=== PATIENT | female | born 2000 | race Hispanic/Latino ===

== ENCOUNTER 2021-07-09 06:03 | Day surgery (SDC) | payer OTHER ==
[2021-07-09] MEDS ORDERED: LACTATED RINGERS 1,000 ML ONE ×2 (07:02→09:02)
[2021-07-09 07:13] LABS: INR 0.98 (0.87-1.13); Partial Thromboplastin Time 30.2 Sec. (24.2-36.6)
--- NOTE | 2021-07-09 07:22 | Anesthesia Consultation ---
Anesthesia Consult and Med Hx Date of service: 07/09/21 - Airway Anesthetic Teeth Evaluation: Good ROM Head & Neck: Adequate Mental/Hyoid Distance: Adequate Mallampati Class: Class I Intubation Access Assessment: Probably Good - Pre-Operative Health Status ASA Pre-Surgery Classification: ASA2 Proposed Anesthetic Plan: General - Pulmonary Hx Smoking: No Hx Sleep Apnea: No - Cardiovascular System Hx Hypertension: No Hx Heart Attack/AMI: No Hx Peripheral Vascular Disease: Yes (stents in both iliac veins, on Eloquis) - Central Nervous System Hx Seizures: Yes (NONE SINCE 2013-HAD [facility]-OFF MEDS 2018- NONE SINCE) Hx Psychiatric Problems: Yes - Gastrointestinal Hx Gastroesophageal Reflux Disease: Yes (gastritis, h/o colon polyps) - Endocrine Hx Liver Disease: Yes (gallbladder disease) - Hematic Hx Anemia: Yes Hx Sickle Cell Disease: No - Other Systems Hx Alcohol Use: Yes (OCC.) Hx Substance Use: No Hx Cancer: No
--- NOTE | 2021-07-09 07:23 | Anesthesia Day of Surgery ---
Anesthesia Day of Surgery - Day of Surgery Patient Examined: Yes Patient H&P Reviewed: Yes Patient is NPO: Yes
[2021-07-09] MEDS ORDERED: LACTATED RINGERS 1,000 ML IV SCH (07:30)
[2021-07-09] MEDS ORDERED: propofoL 200 MG/20 ML VIAL IV ONE (07:44)
[2021-07-09] MEDS ORDERED: ROCURONIUM 50 MG/5 ML INJ IV ONE (07:44)
[2021-07-09] MEDS ORDERED: LIDOCAINE (1%) 10 MG/1 ML VIAL 20 ML MDV ONE (07:44)
[2021-07-09] MEDS ORDERED: BUPIVACAINE/PF (0.5%) 5 MG/1 ML 30 ML VIAL INFILTRATI ONE (07:44)
[2021-07-09] MEDS ORDERED: LIDOCAINE MPF (2%) 20 MG/1 ML VIAL 5 ML ONE (07:44)
[2021-07-09] MEDS ORDERED: MIDAZOLAM 2 MG/2 ML INJ IV NR (08:00)
[2021-07-09] MEDS ORDERED: VANCOMYCIN/NS 1 GM/250 ML 1 GM/250 ML BAG IV SCH (08:00)
[2021-07-09] MEDS ORDERED: SCOPOLAMINE TRANSDERMAL PATCH 72 HR TD NR (08:00)
[2021-07-09] MEDS ORDERED: ONDANSETRON 4 MG/2 ML INJ IV PRN (08:00)
[2021-07-09] MEDS ORDERED: HYDROmorphone 1 MG/1 ML INJ IV PRN ×2 (08:00)
[2021-07-09] MEDS ORDERED: FAMOTIDINE 20 MG/2 ML INJ IV NR (08:00)
[2021-07-09] MEDS ORDERED: VANCOMYCIN/NS 1 GM/250 ML 1 GM/250 ML BAG IV NR (08:05)
[2021-07-09] MEDS ORDERED: PHENYLEPHRINE/NS 1,000 MCG/10 ML SYRINGE (OR USE) IV ONE (08:26)
[2021-07-09] MEDS ORDERED: dexAMETHasone 20 MG/5 ML VIAL ONE (08:55)
[2021-07-09] MEDS ORDERED: NEOSTIGMINE 10MG/10 ML INJ MDV ONE (09:02)
[2021-07-09] MEDS ORDERED: GLYCOPYRROLATE 0.4 MG/2 ML INJ ONE (09:02)
[2021-07-09] MEDS ORDERED: LIDOCAINE (1%) 10 MG/1 ML VIAL 20 ML MDV INFILTRATI ONE (09:18)
[2021-07-09] MEDS ORDERED: BUPIVACAINE/PF (0.5%) 5 MG/1 ML 10 ML VIAL INFILTRATI ONE (09:20)
--- NOTE | 2021-07-09 09:41 | Short Stay Summary ---
Short Stay Documentation Date of service: 07/09/21 - History Principal diagnosis: biliary dyskinesia H&P: obtained from office - Allergies and Medications Current Medications: Allergies Sulfa (Sulfonamide Antibiotics) Adverse Reaction (Severe, Verified 07/08/21 11:48) Rash CAUSES RASH,ITCHING ,SEVERE STOMACH PAIN amoxicillin Adverse Reaction (Intermediate, Verified 07/08/21 11:48) Unknown STOMACH PAIN azithromycin [From Zithromax] Adverse Reaction (Intermediate, Verified 07/08/21 11:48) Rash ITCHING Home Medications Medication Instructions Recorded Confirmed Last Taken Type B12 Injections 1 ml IM Q48HR 07/08/21 Unknown History Desvenlafaxine Succinate [Pristiq 25 mg PO QHS 07/08/21 07/08/21 Unknown History ER] Eliquis 2.5 mg PO BID 07/08/21 07/08/21 Unknown History Escitalopram [Lexapro] 10 mg PO HS 07/08/21 07/08/21 Unknown History Hyoscyamine Sulfate 0.125 mg PO PRN 07/08/21 07/08/21 Unknown History Pantoprazole [Protonix] 40 mg PO QDAY 07/08/21 07/08/21 Unknown History Pirmella 1-35 28 Tablet 1 tab PO DAILY 07/08/21 07/08/21 Unknown History Sodium Chloride Toothpaste 1 applicatio BID 07/08/21 Unknown History Vyvanse 60 mg PO DAILY 07/08/21 07/08/21 Unknown History clonazePAM [ Klonopin] 0.5 mg PO PRN PRN 07/08/21 07/08/21 Unknown History Active Medications Famotidine (Famotidine 20 Mg/2 Ml Inj) 20 mg IV PREOP NR Stop: 07/09/21 21:00 Hydromorphone HCl (Hydromorphone 1 Mg/1 Ml Inj) 0.25 mg IV Q10MIN PRN PRN Reason: Pain, Moderate (4-6) Stop: 07/09/21 17:00 Hydromorphone HCl (Hydromorphone 1 Mg/1 Ml Inj) 0.5 mg IV Q10MIN PRN PRN Reason: Pain , Severe (7-10) Stop: 07/09/21 17:00 Lactated Ringer's (Lactated Ringers) 1,000 mls @ 100 mls/hr IV DIRECT SALLY Vancomycin HCl (Vancomycin/Ns 1 Gm/250 Ml) 1 gm in 250 mls @ 167.007 mls/hr IV PREOP SALLY; Protocol Stop: 07/09/21 15:00 Midazolam HCl (Midazolam 2 Mg/2 Ml Inj) 2 mg IV PREOP NR Stop: 07/09/21 23:59 Ondansetron HCl (Ondansetron 4 Mg/2 Ml Inj) 4 mg IV ONCE PRN PRN Reason: Nausea And Vomiting Stop: 07/09/21 17:00 Scopolamine (Scopolamine Transdermal Patch 72 Hr) 1 each TD PREOP NR Stop: 07/09/21 21:00 - Brief post op/procedure progress note Date of procedure: 07/09/21 Pre-op diagnosis: biliary dyskinesia Post-op diagnosis: same Procedure: Laparoscopic cholecystectomy Anesthesia: GETA, local Findings: Gallbladder with adhesions to the omentum Surgeon: ANIBAL SANTANA Outpatient Admitting Clerk: SELMA ARGUETA Estimated blood loss: minimal Pathology: list (Gallbladder) Specimen disposition: to lab Condition: stable - Hospital course Hospital course: Patient observed in PACU and discharged home in stable condition - Disposition Condition at discharge: Good Disposition: 01 HOME / SELF CARE / HOMELESS Short Stay Discharge Plan Activity: other (No heavy lifting for 1 week. No driving while taking prescription pain medications) Diet: regular Wound: open to air, per your surgeon's advice Additional Instructions: See printed discharge paperwork Follow up with: PRIMARY CARE, [Primary Care Provider] - 7 Days ANIBAL SANTANA DO [Staff Physician] - 14 Days Prescriptions: HYDROcodone/APAP 5-325 [[place] 5/325] 1 each PO Q6HR PRN #15 tablet PRN Reason: Pain , Severe (7-10) Ondansetron (Nf) [Zofran TAB] 4 mg PO Q8HR PRN #30 tablet PRN Reason: Nausea
--- NOTE | 2021-07-09 09:44 | Operative Report ---
Operative Report Operative Report: Date of procedure: 07/09/21 Pre-op diagnosis: biliary dyskinesia Post-op diagnosis: same Procedure: Laparoscopic cholecystectomy Anesthesia: GETA, local Findings: Gallbladder with adhesions to the omentum Surgeon: ANIBAL SANTANA Law Reporter: SELMA ARGUETA Estimated blood loss: minimal Pathology: list (Gallbladder) Specimen disposition: to lab Condition: stable Hospital course: Patient observed in PACU and discharged home in stable condition HPI an indication: 21-year-old female who presented to the surgery clinic with complaints of intermittent but frequent right upper quadrant and epigastric abdominal pain, abdominal bloating, associated with nausea and vomiting. Patient had an extensive GI work-up including a HIDA scan with ejection fraction and abdominal ultrasound. Her gallbladder ejection fraction was 2%. No stones were seen on ultrasound. It was recommended that the patient undergo cholecystectomy. All risks, benefits, alternatives to surgery were discussed in detail and questions answered. Consent was obtained for laparoscopic, possible open cholecystectomy, possible cholangiogram. Procedure in detail: The patient was identified in the preoperative area and taken back to the operating room, placed on the operating room table in supine position. After anesthesia was induced, the abdomen was prepped and draped in usual sterile fashion and timeout was performed. Local anesthetic was infiltrated into all of the skin incision sites. A supraumbilical incision was made through which a Veress needle was inserted. The Veress needle positioning was confirmed using the saline drop test and the abdomen was insufflated to 15 mmHg. The Veress needle was then removed and a 5 mm Optiview trocar placed through this incision. The abdomen was inspected and there was no underlying injury to any of the abdominal structures. An additional 12 mm subxyphoid port, 5 mm right upper quadrant and 5 mm right lateral abdominal ports were placed under direct visualization. The patient was then placed into reverse Trendelberg and tilted to the left. The gallbladder fundus was grasped and retracted cephalad. There were omental adhesions to the mid body and neck of the gallbladder. These adhesions were dissected meticulously using electrocautery and blunt dissection. The cystic duct and artery were carefully skeletonized. The medial and lateral peritoneal attachments to the gallbladder were dissected using a combination of blunt dissection with the [place] and hook electrocautery. The cystic duct and artery were the only 2 structures seen entering the gallbladder and the critical view was successfully obtained. 3 clips were placed on the proximal aspect of the cystic duct and 1 distally and this was transected in between the clips using EndoShears. 1 clips was placed on the proximal aspect of the cystic artery and this was transected in between the clips using electrocautery. The gallbladder was dissected from the liver bed using electrocautery. The gallbladder was placed into a Endo Catch bag and removed from the abdomen via the 12mm port. The gallbladder fossa was then inspected and there was no identifiable bleeding or bile leakage. This area was irrigated and the irrigant returned clear. Hemostasis was ensured. The clips on the cystic duct and artery were visualized and intact. The patient was then placed into neutral position. The 12 mm port fascia was closed with interrupted 0 Vicryl suture using the Rivas Herman device. The remaining ports were removed under direct visualization. Skin incisions were closed with 4-0 Monocryl subcuticular stitches and skin glue. All skin incisions were once again infiltrated with local anesthetic. At the end case all sponge, instrument, sharp counts were correct 2. The patient was awoken from anesthesia, extubated, and taken to PACU in stable condition.
[2021-07-09] MEDS ORDERED: HYDROcodone/ACETAMINOPHEN 5-325 MG TAB PO PRN (10:30)
[2021-07-09] MEDS ORDERED: ONDANSETRON 4 MG ODT TAB PO SCH (11:00)
[2021-07-09 11:07] VITALS: BP 118/79
--- NOTE | 2021-07-09 16:12 | Post Anesthesia Evaluation ---
- Post Anesthesia Evaluation Patient Participated: Yes Airway Patent: Yes Stable Respiratory Function: Yes Nausea/Vomiting: No Temp > 96.8F: Yes Pain Manageable: Yes Adequeate Hydration: Yes Anesthesia Complications: No Block Receding Appropriately: Not Applicable Patient on Ventilator: No
== END 2021-07-09 11:25 | disposition home or self-care (01) ==
LOC: OR 06:03
PROVIDERS: ATTEND Surgery
DX: K80.10 Calculus of gallbladder with chronic cholecystitis without obstruction (principal); K82.8 Other specified diseases of gallbladder; K66.0 Peritoneal adhesions (postprocedural) (postinfection); Z88.2 Allergy status to sulfonamides; Z88.6 Allergy status to analgesic agent; Z79.899 Other long term (current) drug therapy; Z98.890 Other specified postprocedural states; I73.9 Peripheral vascular disease, unspecified; K21.9 Gastro-esophageal reflux disease without esophagitis; F32.9 Major depressive disorder, single episode, unspecified; F41.9 Anxiety disorder, unspecified; D64.9 Anemia, unspecified; Z86.010 Personal history of colon polyps
CPT/HCPCS: 36415; 47562; 84703; 85610; 85730; 88304; J1100; J1170; J1815; J2250; J2370; J2405; J2704; J2710; J3370; J3490; J7120; Q0162